=== PATIENT | female | born 1985 | race Two or more races ===

== ENCOUNTER 2019-09-20 14:50 | Emergency (ER) | payer SELFPAY ==
[~2019-09-20] VITALS: Ht 165.1 cm; Wt 82.0 kg
[2019-09-20 15:59] VITALS: BP 135/82
== END 2019-09-20 17:00 | disposition home or self-care (01) ==
LOC: ER 14:50
DX: Z03.818 Encounter for observation for suspected exposure to other biological agents ruled out (principal); Z53.21 Procedure and treatment not carried out due to patient leaving prior to being seen by health care provider
CPT/HCPCS: 87635; C9803